=== PATIENT | female | born 1995 | race Caucasian/White ===

== ENCOUNTER → 2019-10-27 | Outpatient (CLI) | payer SELFPAY ==
[2019-10-30 03:07] LABS: Chlamydia By Nucleic Acid AMP Negative (Negative)
[2019-10-30 13:54] LABS: Gonococcus By Nucleic Acid AMP Negative (Negative)
== END | disposition home or self-care (01) ==
LOC: LABSPEC 14:03
PROVIDERS: Visit Provider Obstetrics & Gynecology
DX: Z34.81 Encounter for supervision of other normal pregnancy, first trimester (principal)
CPT/HCPCS: 87491; 87591

== ENCOUNTER → 2019-11-09 09:48 | Outpatient (CLI) | payer SELFPAY ==
[2019-11-09 10:52] LABS: Absolute Lymphocyte Count 2.03 X10^3/uL (0.83-4.51); Absolute Neutrophil Count 4.7 X10^3/uL (2.0-7.7); Basophil# 0.03 X10^3/uL; Basophil% 0.4 % (0-1); Eosinophils% 1.3 % (0-5); Hemoglobin 12.2 g/dL (12.0-15.0); Lymphocyte # 2.03 X10^3/ul (4.0); Lymphocyte % 27.1 % (19-41); Mean Corpuscular Hgb 28.7 pg (27.0-32.0); Mean Corpuscular Volume 87.1 fL (81-99); Mean Platelet Vol. 11.6 fl (6.2-12.0); NRBC Flagged by Analyzer 0 % (0-5); Neutrophil # 4.69 X10^3/uL (2.7-7.7); Neutrophil % 62.8 % (47-70); Platelet Count 230 K/mm3 (150-450); RBC Distribution Width CV 13.6 % (11.6-14.6); RBC Distribution Width SD 42.9 fl (35.1-43.9); Red Blood Count 4.25 M/mm3 (4.2-5.4); White Blood Count 7.5 K/mm3 (4.4-11.0)
[2019-11-09 10:57] LABS: Color, Urine Yellow (Yellow); Glucose, Dipstick Normal (Normal); Ketone-Dipstick 5 mg/dl (Negative); Leukocyte Esterase-Dipstick 25 /ul (Negative); Nitrite-Dipstick Negative (Negative); Occult Blood-Urine 10 /ul (Negative); Protein-Dipstick Negative (Negative); Specific Gravity, Urine 1.025 (1.002-1.030); Urine Bilirubin Dipstick Negative (Negative); Urine Clarity Sl. Cloudy (Clear); Urine Urobilinogen Normal (Normal)
[2019-11-09 11:15] LABS: Thyroid Stim Hormone (TSH) 2.32 uIU/mL (0.358-3.74)
[2019-11-09 11:41] LABS: HIV - WCH Non-Reactive (Nonreactive); Hepatitis B Surface Antigen Non-Reactive (Nonreactive); Hepatitis C Antibody Non-Reactive (Nonreactive); Rubella IgG 10.6 IU/mL
[2019-11-12 06:28] LABS: Prenatal RPR NONREACTIVE (NONREACTIVE)
== END ==
PROVIDERS: Visit Provider Obstetrics & Gynecology
DX: Z34.81 Encounter for supervision of other normal pregnancy, first trimester (principal)
CPT/HCPCS: 81002; 84443; 85025; 86703; 86762; 86803; 87340

== ENCOUNTER → 2020-03-15 16:35 | Outpatient (CLI) | payer SELFPAY ==
[2020-03-15 17:31] LABS: Hematocrit 31.3 % (37-47); Hemoglobin 10.4 g/dL (12.0-15.0); Mean Corp Hgb Conc 33.2 g/dL (32-36); Mean Corpuscular Hgb 29.3 pg (27.0-32.0); Mean Corpuscular Volume 88.2 fL (81-99); Mean Platelet Vol. 10.3 fl (6.2-12.0); Platelet Count 250 K/mm3 (150-450); RBC Distribution Width SD 38.8 fl (35.1-43.9); Red Blood Count 3.55 M/mm3 (4.2-5.4); White Blood Count 6.3 K/mm3 (4.4-11.0)
[2020-03-15 17:37] LABS: Glucose Challenge Gest 1H 50g 120 mg/dL (70-140)
== END ==
PROVIDERS: Visit Provider Student in an Organized Health Care Education/Training Program
DX: Z34.82 Encounter for supervision of other normal pregnancy, second trimester (principal)
CPT/HCPCS: 36415; 82950; 85027

== ENCOUNTER → 2020-05-24 | Outpatient (CLI) | payer SELFPAY | END | disposition home or self-care (01) | LOC: LABSPEC 16:11 | PROVIDERS: Visit Provider Student in an Organized Health Care Education/Training Program | DX: Z36.85 Encounter for antenatal screening for Streptococcus B (principal) | CPT/HCPCS: 87077; 87081; 87186 ==

== ENCOUNTER 2020-06-12 13:25 | Inpatient (IN) | payer SELFPAY ==
[2020-06-12] VITALS (17 sets, daily range): BP systolic 107–129; BP diastolic 51–98; PULSE 65–88; RESP 14–16; TEMP 35.7–36.8; O2SAT 95–100; BMI 30.7
[2020-06-12] MEDS: Lactated Ringers 1,000 ML 999 ML IV (13:15)
[2020-06-12 13:36] LABS: Absolute Lymphocyte Count 1.97 X10^3/uL (0.83-4.51); Absolute Neutrophil Count 8.5 X10^3/uL (2.0-7.7); Basophil# 0.05 X10^3/uL; Basophil% 0.4 % (0-1); Eosinophils% 0.9 % (0-5); Hemoglobin 10.9 g/dL (12.0-15.0); Lymphocyte # 1.97 X10^3/ul (4.0); Mean Corp Hgb Conc 32.1 g/dL (32-36); Mean Corpuscular Hgb 25.8 pg (27.0-32.0); Mean Corpuscular Volume 80.4 fL (81-99); Mean Platelet Vol. 11.2 fl (6.2-12.0); Monocyte# 0.84 X10^3/uL; Monocyte% 7.2 % (0-10); NRBC Flagged by Analyzer 0 % (0-5); Neutrophil # 8.49 X10^3/uL (2.7-7.7); Platelet Count 281 K/mm3 (150-450); RBC Distribution Width CV 14.6 % (11.6-14.6); RBC Distribution Width SD 42.3 fl (35.1-43.9); Red Blood Count 4.23 M/mm3 (4.2-5.4); White Blood Count 11.6 K/mm3 (4.4-11.0)
[2020-06-12] MEDS: Sodium Citrate/Citric Acid 30 ML UDC PO (13:44)
--- NOTE | 2020-06-12 13:44 | PCM.HPOB.BLA ---
History and Physical Date of Admission: 06/12/20 HPI: 24 yo at 39/5w, ESTHER 06/14/20 by LMP, admitted for primary elective section. Patient reported to triage for decreased movement. Upon initial evaluation FHR was 115s/mod tamiko/+accel/no decel. A deceleration into the 60-70s then occured for at least 3 minutes at which point patient was taken back to OR. Upon arrival FHR was in the 140s. Patient monitored in OR for about 30 minutes - FHR 140/mod tamiko/+accel/no decel, toco quiet. Reports some cramping. No LOF, VB. Had emesis x1 this morning. This is complicated by: nothing Obstetrical History G1 Past Medical History denies Medications PNV Past Surgical History Denies Social History Tobacco use: denies Alcohol use: denies Illicit drug use: denies Labs Blood type: O pos Rubella: immune Hep B/C: neg/neg HIV: neg RPR: neg GBS: pos Allergies NKDA Review of Systems General: alert and oriented HEENT: _denies change of vision Heart/lungs: _denies CP, SOB GI: _denies nausea, vomiting, dysuria, diarrhea MSK: _denies calf pain, tenderness Physical Exam Vital Signs Pulse BP Pulse Ox 06/12/20 13:18 82 128/98 H 98 06/12/20 12:53 77 122/72 H General: a&o x3, NAD HEENT: normocephalic, atraumatic Cardio: no JVD Resp: no increased work in breathing Abdomen: soft, gravid, nontender Extremities: _minimal-moderate edema CE: 3 cm per RN FHT: 140/mod tamiko/+accel/no decel [place]: quiet Labs Laboratory Results - last 24 hr 06/12/20 13:15 WBC 11.6 H RBC 4.23 Hgb 10.9 L Hct 34.0 L MCV 80.4 L MCH 25.8 L MCHC 32.1 RDW Std Deviation 42.3 RDW Coeff of Tamiko 14.6 Plt Count 281 MPV 11.2 Immature Gran % (Auto) 1.500 H Neut % (Auto) 73.0 H Lymph % (Auto) 17.0 L [place] % (Auto) 7.2 Eos % (Auto) 0.9 Baso % (Auto) 0.4 Absolute Neuts (auto) 8.5 H Absolute Lymphs (auto) 1.97 Nucleated RBC % 0 Assessment & Plan 24 yo at 39/5w, ESTHER 06/14/20 by LMP, admitted for primary elective section. Uncomplicated Admit to L&D - heart rate deceleration with recovery. status at this time reassuring, category 1. Discussed options of trial of labor with Pitocin induction versus primary section. At this time status is stable and reassuring, patient is dilated to 3 cm. Reasonable to attempt induction of labor. If patient were to choose this route would recommend her getting her epidural now in an attempt to prevent general anesthesia if needed. Discussed alternate routes with primary section. All risks, benefits, alternatives discussed with the patient. Risks include but are not limited to: Risk of bleeding to the point of transfusion, infection, injury to surrounding tissue including bowel or bladder requiring prolonged Jefferson catheter use, VTE, ICU admission. Patient and aware and all questions answered. Patient aware that if she were to have section in this this does not necessitate repeat section unless desired. Discussed that at this time she and baby are stable, labor attempt is a viable option for her. She was made aware that during labor there is a chance of intolerance with section at that time. However this may not occur depending on labor course. Patient and her had a discussion after our discussion about her options for delivery. She decided at that time for primary section. This will be done now in a nonemergent fashion. Patient able to receive spinal. 2 g Ancef and 500 mg azithromycin preop to be given. - GBS pos - Anesthesia in OR with patient during discussions.
[2020-06-12] MEDS: Ondansetron 4 MG/2 ML Vial IV ×2 (13:57→18:31)
[2020-06-12] MEDS: Cefazolin 2 GM in 0.9% Normal Saline 100 ML IV (14:12)
--- NOTE | 2020-06-12 14:51 | PCM.OPRPT ---
Delivery Classification: ANDRY Final ESTHER: 06/14/20 Final ESTHER Source: LMP Gestational age: 39 Weeks and 5 Days Type of Anesthesia:: Spinal Date of Procedure: 06/12/20 Pre-Operative Diagnosis: Dwyer intrauterine , elective section Post-Operative Diagnosis: Dwyer intrauterine , elective section Indications: 24-year-old G1 at 39/5 weeks who presented with decreased movement. Patient had heart rate deceleration with spontaneous recovery. Patient was monitored for 30 minutes in OR. Discussed trial of labor versus section. Patient and her elected for primary section. Risk benefits alternatives were discussed with patient. Risks include but are not limited to: Risk of bleeding to the point transfusion, infection, injury to surrounding tissue including bowel or bladder requiring prolonged Jefferson catheter use, VTE, ICU admission. Patient aware and consented. Description of Procedure: Patient was present in the operating room. Spinal anesthesia placed. Patient placed in the supine position with a left lateral tilt. Prepped and draped in usual sterile fashion. Pfannenstiel skin incision made with scalpel carried down through subcutaneous tissue. Fascia nicked on either side of the midline and extended bilaterally using Bell scissors. Sigifredo clamps grasped. Fascial edge which was tented up underlying rectus muscles were dissected off bluntly. Sigifredo clamps moved to inferior fascial edge which was tented up and the underlying rectus muscles were dissected off bluntly and sharply at midline. Hemostats utilized to separate rectus muscle superiorly. Hemostats were grasped peritoneum and incised, peritoneal entry extended. Bladder blade placed. Vesicouterine peritoneum identified and bladder flap created. Low transverse uterine incision made with scalpel and extended bluntly. Amniotic fluid cleared. Hand placed in the uterus with the assistance of gentle fundal pressure head delivered followed by body. Cord clamped and cut. Baby to nursing. Spontaneous delivery of placenta. Uterus exteriorized and cleared of all clots. Hysterotomy closed with a running locking stitch. Followed by a second vertical imbricating stitch. Uterus replaced in the abdomen, hysterotomy closure hemostatic. Peritoneum closed with a running stitch. Fascia closed in a running fashion. Subcutaneous tissue closed with suture. Skin closed with a running subcuticular stitch. At the end of the procedure all needle, lap, sponge counts were correct x3. Urine output: 500 cc Cord Entanglement: None Gender: Male (1 minute): 9 (5 minute): 9 Antibiotic Given: Ancef 2 grams IV x1, Zithromax 500 mg/5 mL X1 - Admit VTE Documentation VTE Mechan Device Prophylaxis: SCD's
--- NOTE | 2020-06-12 14:56 | DCINST_ITS ---
Discharge Activity: Return to Normal Activity, May not drive while taking narcotic pain medications., May Shower May resume sexual activity in: 4-6 weeks Weight Bearing Status: Weight bearing as tolerated Call your doctor if your incision/area has: Continuous Slow Oozing, Sudden Increased Bleeding, Increased Pain/ Swelling, Increased Redness Call your doctor if you observe: Fever of 101 or Higher, Inability to urinate, Inability to have a bowel movement, Using more than one pad per hour, Shortness of breath, Dizziness, Increased palpitations (irregular heartbeat), Calf discomfort, Uncontrolled pain Cleanse incision/area with: Soap & Water Additional Instructions: If you experience any of the following, contact your healthcare provider. * Bleeding that soaks a pad every hour for 2 hours * Fever 100.4 or higher * Unrelieved incision or abdominal pain * Swelling, redness, discharge or bleeding from your incision or episiotomy site * Your incision begins to separate * Problems urinating (including inability to urinate or burning while urinating). * Visual changes * Severe headache * Flu-like symptoms * Pain or redness in one of both of your breasts * Pain, warmth, tenderness or swelling in your legs, especially the calf area * Frequent nausea and vomiting * Symptoms of depression or anxiety If you experience any of the following, call 911 or go to the nearest Emergency Room. * Chest pain * Problems breathing * Seizure activity * Partial or complete paralysis of a body part, slurred speech, weakness or drooping of the face, or a sudden inability to walk or hold your balance Allergies/Adverse Reactions: Allergies No Known Allergies Allergy (Verified 06/12/20 13:37) Medications to take at Discharge Famotidine [Pepcid AC] 20 mg PO DAILY 06/12/20 Vit No.130/Iron/Folic [ Tablet] 1 each PO DAILY 06/12/20 Follow-Up: Call to make an appointment with your doctor for an incision check in 1-2 weeks. You will also need a 6 week post- follow up appointment. Test results from this visit will be discussed in further detail at your follow- up appointment, if applicable. Please Follow Up With: Flaquita Gibbs DO When: 2 weeks post op, 6 week Primary Care Physician: Care Physician,No Primary [Primary Care Provider] -
[2020-06-12] MEDS: Ketorolac 30 MG/ML Syringe IV ×2 (15:39→21:52)
[2020-06-12] MEDS: Acetaminophen 500 MG Tablet 1000 MG PO ×2 (16:28→21:55)
[2020-06-12] MEDS: Oxytocin 30 units/NS 500 ml 30 UNITS/500 ML IV.SOLN 167 UNITS IV (17:29)
[2020-06-12] MEDS: Lactated Ringers 1,000 ML 100 ML IV (20:34)
--- NOTE | 2020-06-12 22:00 | NURSING ---
Offered to help get pt out of bed at this time, but pt refused and want to wait a little bit. This nurse explained to pt the importance of getting up after surgery and pt agreed to get up shortly.
[2020-06-13 01:45] VITALS: PULSE 78; RESP 16; O2SAT 97
[2020-06-13] MEDS: Ketorolac 30 MG/ML Syringe IV ×2 (04:18→10:13)
[2020-06-13] MEDS: Acetaminophen 500 MG Tablet 1000 MG PO ×3 (04:18→16:33)
[2020-06-13 04:19] VITALS: BP 114/69; PULSE 68; RESP 16; TEMP 36.6; O2SAT 97
[2020-06-13 04:38] LABS: Hematocrit 29.5 % (37-47); Hemoglobin 9.5 g/dL (12.0-15.0); Mean Corp Hgb Conc 32.2 g/dL (32-36); Mean Corpuscular Hgb 26.2 pg (27.0-32.0); Mean Corpuscular Volume 81.3 fL (81-99); Mean Platelet Vol. 11.5 fl (6.2-12.0); Platelet Count 257 K/mm3 (150-450); RBC Distribution Width CV 14.6 % (11.6-14.6); Red Blood Count 3.63 M/mm3 (4.2-5.4)
--- NOTE | 2020-06-13 07:05 | PN.OBGYN_ITS ---
Subjective: Postop day 1. Feeling well. Pain controlled. Breast-feeding. Lochia minimal. - Physical Exam Vitals/I&O's: Vital Signs Temp Pulse Resp BP Pulse Ox 97.9 F 68 16 114/69 97 06/13/20 04:19 06/13/20 04:19 06/13/20 04:19 06/13/20 04:19 06/13/20 04:19 Oxygen Delivery Method Room Air Weight: 83.915 kg Body Mass Index (BMI) 30.7 Intake and Output for Last 24 Hours 06/11/20 06/12/20 06/13/20 23:59 23:59 23:59 Intake Total 2115 / 2115 518.33 / 518.33 Output Total 1550 / 1550 600 / 600 Balance 565 / 565 -81.67 / -81.67 General: Alert, Oriented x3, No apparent distress HEENT: Atraumatic, Normocephalic Neck: Supple Lungs: Normal air movement Cardiovascular: Regular rate Abdomen: Soft - Dressing clean and dry. Uterus 2 cm below umbilicus. Extremities: No edema Neurological: Cranial nerves II-XII grossly intact Psych/Mental Status: Normal Affect, Appropriate Laboratory Results 06/12/20 13:15: WBC 11.6 H, RBC 4.23, Hgb 10.9 L, Hct 34.0 L, MCV 80.4 L, MCH 25.8 L, MCHC 32.1, RDW Std Deviation 42.3, RDW Coeff of Tamiko 14.6, Plt Count 281, MPV 11.2, Immature Gran % (Auto) 1.500 H, Neut % (Auto) 73.0 H, Lymph % (Auto) 17.0 L, [place] % (Auto) 7.2, Eos % (Auto) 0.9, Baso % (Auto) 0.4, Absolute Neuts (auto) 8.5 H, Absolute Lymphs (auto) 1.97, Nucleated RBC % 0 06/12/20 13:15: Blood Type O POSITIVE, Antibody Screen NEGATIVE 06/13/20 04:30: WBC 15.0 H, RBC 3.63 L, Hgb 9.5 L, Hct 29.5 L, MCV 81.3, MCH 26.2 L, MCHC 32.2, RDW Std Deviation 42.0, RDW Coeff of Tamiko 14.6, Plt Count 257, MPV 11.5 Current Medications Acetaminophen (Acetaminophen 500 Mg Tablet) 1,000 mg PO Q6H [facility] Last Admin: 06/13/20 04:18 Dose: 1,000 mg Documented by: Bisacodyl (Bisacodyl 10 Mg Suppository) 10 mg RC UD PRN PRN Reason: If no BM Diphenhydramine HCl (Diphenhydramine 25 Mg Capsule) 25 mg PO Q6H PRN PRN PRN Reason: ITCHING Stop: 06/13/20 15:20 Enoxaparin Sodium (Enoxaparin 40 Mg/0.4 Ml Syringe) 40 mg SC DAILY [facility] Hydrocortisone (Hydrocortisone 2.5% Crm) 1 applic TOPICAL TID PRN PRN; Protocol PRN Reason: Discomfort Lactated Ringer's () 1,000 mls @ 100 mls/hr IV .Q10H [facility] Last Infusion: 06/13/20 01:45 Dose: 0 mls/hr Documented by: Ibuprofen (Ibuprofen 600 Mg Tablet) 600 mg PO Q6H [facility] Ketorolac Tromethamine (Ketorolac 30 Mg/Ml Syringe) 30 mg IV Q6H [facility] Stop: 06/13/20 09:31 Last Admin: 06/13/20 04:18 Dose: 30 mg Documented by: Nalbuphine HCl (Nalbuphine 10 Mg/Ml Ampul) 5 mg IV Q3H PRN PRN PRN Reason: ITCHING Stop: 06/13/20 15:20 Naloxone HCl (Naloxone 0.4 Mg/Ml Syringe) 0.02 mg IV Q1M PRN PRN Reason: RR <10 and pt unresponsive Ondansetron HCl (Ondansetron 4 Mg/2 Ml Vial) 4 mg IV Q4H PRN PRN PRN Reason: Nausea Last Admin: 06/12/20 18:31 Dose: 4 mg Documented by: Oxycodone HCl (Oxycodone 5 Mg Tablet) 5 - 10 mg PO Q4H PRN PRN PRN Reason: Pain Score 4-10 Prochlorperazine Edisylate (Prochlorperazine 10 Mg/2 Ml Vial) 10 mg IV Q6H PRN PRN PRN Reason: NAUSEA Senna/Docusate Sodium (Senna/Docusate Sodium 1 Tablet) 0 tablet PO DAILY [place] Simethicone (Simethicone 80 Mg Tablet) 80 mg PO PCHS PRN PRN Reason: Indigestion/stomach pain Sodium Chloride (0.9% Saline Lock 10 Ml Syringe) 5 - 15 ml IV UD PRN PRN Reason: SALINE FLUSH Zolpidem Tartrate (Zolpidem Tartrate 5 Mg Tablet) 5 mg ORAL QHS PRN PRN PRN Reason: Insomnia Medical Necessity - Tobacco Use Smoking Status: Never smoker Assessment/Plan 24-year-old postop day 1 status post primary section. Acute on chronic anemia secondary to surgery, iron supplement at home. Breast-feeding. Desires home-going today.
[2020-06-13 08:30] VITALS: BP 122/70; PULSE 76; RESP 16; TEMP 36.8
[2020-06-13] MEDS: Senna/Docusate Sodium 1 Tablet PO (10:12)
[2020-06-13] MEDS: Enoxaparin 40 MG/0.4 ML Syringe SC (10:12)
[2020-06-13 12:20] VITALS: BP 114/63; PULSE 83; RESP 16; TEMP 36.4
[2020-06-13] MEDS: Ibuprofen 600 MG Tablet PO (16:32)
[2020-06-13 17:00] VITALS: BP 118/66; PULSE 80; RESP 16; TEMP 36.6
== END 2020-06-13 18:25 | disposition home or self-care (01) | DRG 788 ==
LOC: WPOUT 13:27 → WP 13:27
PROVIDERS: Admitting Provider Student in an Organized Health Care Education/Training Program; Visit Provider Student in an Organized Health Care Education/Training Program
DX: O36.8130 Decreased fetal movements, third trimester, not applicable or unspecified (principal); O99.824 Streptococcus B carrier state complicating childbirth; O76 Abnormality in fetal heart rate and rhythm complicating labor and delivery; Z3A.39 39 weeks gestation of pregnancy; Z37.0 Single live birth
CPT/HCPCS: 59025; 59050; 85025; 85027; 86850; 86900; 86901; 99218; 99251; J7120; G0378; G0463; J2405

== ENCOUNTER → 2020-06-21 15:35 | Outpatient (CLI) | payer SELFPAY ==
[2020-06-12 12:47] VITALS: BMI 30.7
[2020-06-21 16:11] LABS: Hematocrit 34.9 % (37-47); Hemoglobin 10.8 g/dL (12.0-15.0); Mean Corp Hgb Conc 30.9 g/dL (32-36); Mean Corpuscular Hgb 25.2 pg (27.0-32.0); Mean Corpuscular Volume 81.4 fL (81-99); Mean Platelet Vol. 10.4 fl (6.2-12.0); Platelet Count 426 K/mm3 (150-450); RBC Distribution Width CV 14.6 % (11.6-14.6); RBC Distribution Width SD 42.6 fl (35.1-43.9); Red Blood Count 4.29 M/mm3 (4.2-5.4); White Blood Count 8.7 K/mm3 (4.4-11.0)
[2020-06-21 16:38] LABS: Protein, Urine (Random) 7.7 mg/dL (<11.9); Protein:Creat Ratio 161 mg/g CRE (0-200)
[2020-06-21 16:52] LABS: ALB/GLOB Ratio 0.7 RATIO (0.9-2.4); AST(SGOT) 19 U/L (15-37); Alanine Aminotransfer ALT/SGPT 27 U/L (13-56); Alkaline Phosphatase 164 U/L (45-117); Anion Gap 7 (5-15); BUN 9 mg/dL (7-18); BUN/Creat Ratio 11.1 RATIO (10-20); Calcium,Total 8.8 mg/dL (8.5-10.1); Chloride 106 mmol/L (98-107); Creatinine, Serum 0.81 mg/dL (0.55-1.02); EST Glomerular Filtration Rate 92 mL/min (>60); Est Glom Filt Rate - Afr Amer 112 mL/min (>60); Globulin 4.2 g/dL (2.2-4.2); Glucose 81 mg/dL (74-106); LDH 277 U/L (84-246); Potassium 2.7 mmol/L (3.5-5.1); Protein, Total 7.2 g/dL (6.4-8.2); Sodium Level 140 mmol/L (136-145)
== END ==
PROVIDERS: Visit Provider Student in an Organized Health Care Education/Training Program
DX: R30.0 Dysuria (principal)
CPT/HCPCS: 36415; 80053; 82570; 83615; 84156; 85027; 87086; 87088

== ENCOUNTER → 2020-06-24 11:35 | Outpatient (CLI) | payer SELFPAY ==
[2020-06-12 12:47] VITALS: BMI 30.7
[2020-06-24 15:03] LABS: Potassium 3.3 mmol/L (3.5-5.1)
== END ==
PROVIDERS: Visit Provider Student in an Organized Health Care Education/Training Program
DX: E87.6 Hypokalemia (principal)
CPT/HCPCS: 36415; 84132

== ENCOUNTER → 2020-07-18 | Outpatient (CLI) | payer SELFPAY ==
[2020-06-12 12:47] VITALS: BMI 30.7
[2020-07-21 18:38] LABS: HPV Reflexed? NOT INDICATED
== END | disposition home or self-care (01) ==
LOC: LABSPEC 07-19 08:09
PROVIDERS: Visit Provider Student in an Organized Health Care Education/Training Program
DX: Z12.4 Encounter for screening for malignant neoplasm of cervix (principal)
CPT/HCPCS: 88175; G0145

== ENCOUNTER 2024-04-18 15:55 | Emergency (ER) | payer MEDICAID, SELFPAY ==
[2024-04-18 15:56] VITALS: BP 132/81; PULSE 83; RESP 16; TEMP 36.6; O2SAT 99
--- NOTE | 2024-04-18 16:58 | ED.RN ---
PT IS 8 DAYS PP AND WAS MOVING A BABY TOY ON THE FLOOR WITH HER FOOT, BAD PAIN THAT CAUSED PT TO FALL. PTS SAID PT GOT VERY FLUSHED AND SWEATING. SQUAD BROUGHT PT IN AND DRIVING THE SQUAD HIT A BUMP THAT HELPED. NOTHING SEEMS TO MAKE IT BETTER OR WORSE. NO BLADDER ISSUES.
--- NOTE | 2024-04-18 17:03 | ED.VIS.BACK ---
HPI History of Present Illness Chief Complaint: Back Detail of Chief Complaint: Acute central low back pain Informant: patient and spouse/S.O. Onset/Context/Timing Onset: Today and Hours Context: Sudden Onset Chronic pain exacerbated by: Patient had near fall 194 5 minutes prior to the pain. Injury: fall Timing: Intermittent Quality: Sharp and Aching Location: Lumbar Current Severity: Gone Maximum Severity: Severe Worsened by: improves with Nothing Relieved by: Nothing Associated Symptoms Associated Symptoms: Negative for Numbness, Tingling, Radiation to Right Leg, Radiation to Left Leg, Fever, Abdominal Pain, Dysuria, Unable to Ambulate, Unable to Transfer, Urinary Retention, Urinary Incontinence or Constipation Narrative Narrative: Patient is a 28-year-old female who is status post day 8 who apparently had a near fall. 45 minutes later she had severe central low back pain. She had no neurologic symptoms. She had no radicular pain. She presently has no discomfort. She took oxycodone. She states it did not help. She apparently was transported by ambulance. She reports ambulance hit a bump and her pain went away. Prior similar symptoms: No Recent Illness/Hospitalization: Yes [facility] Medical History delivery delivered Home Medications ?Medication ?Instructions ?Recorded ?Last Taken ?Type famotidine 20 mg tablet 20 mg PO DAILY Check with primary 06/12/20 06/11/20 21:00 History doctor vits no.130-ferrous fum 1 each PO DAILY Check with primary 06/12/20 06/11/20 21:00 History 27 mg iron-folic acid 800 mcg doctor tablet Allergy/AdvReac Type Severity Reaction Status Date / Time No Known Allergies Allergy Verified 04/18/24 15:58 Social History (Updated 04/18/24 @ 17:[address] Calvin Murphy MD) household members: spouse and children Smoking Status: Never smoker ROS ROS ED Constitutional Constitutional ED: Denies chills, fever(s), subjective or sweats Gastrointestinal Gastrointestinal: Denies abdominal pain, diarrhea, melena, nausea or vomiting Genitourinary Genitourinary ED: Denies dysuria, hematuria or urinary frequency Musculoskeletal Musculoskeletal: Reports back pain and other Details: Patient did have a spinal prior to . ; Denies arthralgias, myalgias or neck pain Integumentary Denies rash Hematologic/Lymphatic Hematologic/Lymphatic: Denies easy bleeding or easy bruising EXAM Physical Exam Const Vital Signs: 04/18/24 15:56 Temperature 97.8 F Temperature Source Temporal Pulse Rate 83 Respiratory Rate 16 Blood Pressure 132/81 H Blood Pressure Mean 98 Pulse Ox 99 Oxygen Delivery Method Room Air Positive well nourished and well developed General Appearance ED: well developed and NAD HEENT Reports moist mucous membranes HEENT Narrative: Head is atraumatic normocephalic. Ears normal. Eyes PERRL and EOMs intact bilaterally General Eye ED: Negative for scleral icterus Resp normal respiratory effort Cardio regular rate and regular rhythm GI normal to inspection, nondistended, normoactive bowel sounds, soft to palpation and non-tender Back/Spine Back/Spine Narrative: Slight discomfort to palpation right paralumbar region. Having patient twist to the right or left causes no discomfort presently. Having patient been to the light of breath does not cause discomfort. Gait observed and normal. Able to walk on heels and toes. Extremity normal to inspection and no clubbing, cyanosis or edema General Extremety ED: Negative for edema or tenderness General Extremity: Negative for edema Neuro oriented x3 and no sensory deficits noted Sensorium / Orientation: alert Deep Tendon Reflexes: Rt Patellar (L4): 2+, Lt Patellar (L4): 2+, Rt Ankle (S1): 2+ and Lt Ankle (S1): 2+ Deep Tendon Reflexes Back: Rt Patellar (L4): 2+, Lt Patellar (L4): 2+, Rt Ankle (S1): 2+ and Lt Ankle (S1): 2+ Psych mental status grossly normal Skin no rashes or lesions noted and no wounds MDM MDM MDM Narrative Medical decision making narrative: Patient is presently pain-free. History and exam is consistent with muscular pain. My opinion imaging i.e. x-ray or advanced imaging is not indicated. was concerned this was related to the spinal. He was informed this is not a. Suspect she strained a muscle in her lower back. Recommendation is ice and aunt contraindication. There is no record of delivery at [facility]. She has not been seen since June 2020 for supervision of by Flaquita Gibbs. History & Record Review Additional record(s) reviewed:: Prior outpatient record Discharge Plan Triage Chief Complaint: Back ED Provider: Calvin Murphy Dx/Rx/DC Orders Clinical Impression: Acute lumbar myofascial strain, Status post Instructions: ED Back Sprain/Strain Prescriptions: No Action famotidine 20 MG tablet 20 mg PO DAILY vit no.[id number] 1 EACH tablet 1 each PO DAILY Primary Care Provider: Care Physician,No Primary Referrals: Care Physician,No Primary [Primary Care Provider] - Doctor,Your [Non-Staff] - 1 Week if not improving Activity Restrictions/Additional Instructions: 1. Apply ice 6 times a day to lower back. 2. Take either 3 ibuprofen tablets every 6-8 hours or 2 Aleve tablets every 12 hours for next 3 days. Print Language: Kinyarwanda Disposition Disposition: Home, Self Care
== END 2024-04-18 17:25 | disposition home or self-care (01) ==
LOC: ED 17:18
PROVIDERS: Emergency Provider Emergency Medicine; Visit Provider Emergency Medicine
DX: O9A.23 Injury, poisoning and certain other consequences of external causes complicating the puerperium (principal); S39.012A Strain of muscle, fascia and tendon of lower back, initial encounter; W19.XXXA Unspecified fall, initial encounter; G89.29 Other chronic pain
CPT/HCPCS: 99284

== ENCOUNTER 2024-05-10 21:07 | Emergency (ER) | payer MEDICAID, SELFPAY ==
[2024-05-10 21:08] VITALS: BP 141/105; PULSE 81; RESP 18; TEMP 36.4; O2SAT 97; BMI 33.1
--- NOTE | 2024-05-10 21:12 | ED.VIS.GI ---
HPI HPI - GI History of Present Illness Chief Complaint: Abd Pain Abdominal Pain/Flank Pain Onset: Today and Hours (1) Context: Sudden Onset Timing: Continuous Quality: Aching Location: Diffuse Worsened by: Nothing Relieved by: Nothing Nausea/Vomiting/Emesis GI Symptom: Positive for Nausea; Negative for Vomiting Diarrhea/Melena/Hematochezia GI Symptom: Negative for Diarrhea, Melena or Hematochezia Associated Symptoms Associated Symptoms: Negative for Dysuria, Frequency or Hematuria Narrative Narrative: Patient presents with abdominal pain that began approximately 1 hour prior to arrival. Patient states her pain is aching and dull. Patient states it is diffuse across her abdomen. Patient states it began rather suddenly. Patient states nothing makes her pain better and nothing makes it worse. Patient admits to some nausea but denies any vomiting. Patient denies any diarrhea, melena, or hematochezia. Patient denies any dysuria, frequency, or hematuria. Patient states her pain radiates into her back. Patient states she had a section 1 month ago and has not had a menstrual period since that time. [facility] Medical History (Updated 05/10/24 @ 23:[address] Og Enriquez DO) delivery delivered Home Medications ?Medication ?Instructions ?Recorded ?Last Taken ?Type famotidine 20 mg tablet 20 mg PO DAILY Check with primary 06/12/20 06/11/20 21:00 History doctor vits no.130-ferrous fum 1 each PO DAILY Check with primary 06/12/20 06/11/20 21:00 History 27 mg iron-folic acid 800 mcg doctor tablet hydrocodone-acetaminophen 5-325mg 1 tab PO Q6H PRN PRN Pain 3 days 05/10/24 Unknown Rx 5mg-325mg #10 TABLETS Allergy/AdvReac Type Severity Reaction Status Date / Time No Known Allergies Allergy Verified 05/10/24 21:08 Surgical History (Updated 05/10/24 @ 23:[address] Og Enriquez DO) History of section Social History household members: spouse and children Smoking Status: Never smoker ROS ROS ED Constitutional Constitutional ED: Denies chills or fever(s) Eyes Eyes: Denies blurry vision or change in vision ENT ENT ED: Denies rhinorrhea or sore throat Cardiovascular Cardiovascular: Denies chest pain or palpitations Respiratory/Chest Respiratory/Chest: Denies cough or dyspnea Gastrointestinal Gastrointestinal: Reports abdominal pain and nausea; Denies vomiting Genitourinary Genitourinary ED: Denies dysuria or hematuria Musculoskeletal Musculoskeletal: Reports back pain; Denies neck pain Integumentary Denies abscess or rash Neurologic Neurologic: Denies headache(s) or weakness Allergic/Immunologic Allergic/Immunologic ED: Denies mouth swelling or urticaria EXAM Physical Exam Const Vital Signs: 05/10/24 21:08 05/10/24 21:08 Temperature 97.6 F L Temperature Source Oral Pulse Rate 81 Respiratory Rate 18 Blood Pressure 141/105 H 141/105 H Blood Pressure Mean 117 117 Pulse Ox 97 Positive well nourished and well developed Constitutional Narrative: BMI is 33.2 General Appearance ED: well developed and NAD HEENT Reports moist mucous membranes Neck supple and no JVD Resp normal respiratory effort and clear to auscultation bilaterally Cardio regular rate and regular rhythm GI non-distended Palpation: soft and tender epigastric, LLQ, RLQ, LUQ, RUQ, periumbilical and suprapubic; Negative for guarding or rebound tenderness present Neuro CN's II-XII intact bilaterally, moves all extremities and no sensory deficits noted Sensorium / Orientation: alert Motor Exam: strength 5/5 throughout Psych mental status grossly normal MDM MDM MDM Narrative Medical decision making narrative: Differential diagnosis includes intra-abdominal abscess, wound infection, bowel obstruction, perforation, electrolyte abnormality, pancreatitis, urinary tract infection, and ureteral calculus. CT scan of the abdomen and pelvis will be obtained to assess for bowel obstruction, perforation, wound infection, intra-abdominal abscess, and ureteral calculus. CBC will be obtained to assess for leukocytosis and anemia. Comprehensive metabolic profile will be obtained to assess for hepatic function, renal function, and electrolyte abnormality. Serum lipase will be obtained to assess for pancreatitis. Serum lactate will be obtained to assess for sepsis. Serum hCG will be obtained to assess for . Urinalysis will be obtained to assess for urinary tract infection and hematuria. Lab Data Attestation: I reviewed the patient's lab results. Lab results narrative: CBC was reviewed. There is a slight leukocytosis of 12.6. The remainder is within normal limits. Comprehensive metabolic profile was reviewed and was essentially within normal limits. Serum lactate was reviewed and was normal at 1.9. Lipase was reviewed and was normal at 24. Serum hCG was reviewed and was negative. Urinalysis was reviewed. There is no evidence of urinary tract infection or hematuria. Labs: Laboratory Results - last 24 hr 05/10/24 05/10/24 05/10/24 21:11 21:31 22:40 WBC 12.6 H RBC 4.92 Hgb 12.7 Hct 39.9 MCV 81.1 MCH 25.8 L MCHC 31.8 L RDW Std Deviation 42.3 RDW Coeff of [place] 14.3 Plt Count 368 MPV 10.8 Immature Gran % (Auto) 0.700 Neut % (Auto) 46.8 L Lymph % (Auto) 40.8 [place] % (Auto) 6.4 Eos % (Auto) 4.8 Baso % (Auto) 0.5 Absolute Neuts (auto) 5.9 Absolute Lymphs (auto) 5.12 H Nucleated RBC % 0 Differential Comment SEE COMMENT Atypical Lymphocytes RARE Platelet Estimate ADEQUATE RBC Morphology N CHROM Anisocytosis RARE Microcytosis RARE Sodium 137 Potassium 3.9 Chloride Direct 101 Carbon Dioxide 22.0 Anion Gap 15 BUN 14 Creatinine 0.72 Estim Creat Clear Calc 135.00 Est GFR (MDRD) Non-Af 117 BUN/Creatinine Ratio 19.8 Glucose 106 H Lactic Acid 1.9 Calcium 9.5 Total Bilirubin 0.48 AST 36 H ALT 23 Alkaline Phosphatase 161 H Total Protein 7.9 Albumin 4.4 Globulin 3.6 Albumin/Globulin Ratio 1.2 Lipase 24 Serum , Qual NEGATIVE Urine Color Yellow Urine Clarity Clear Urine pH 6.0 Ur Specific [place] 1.015 Urine Protein 15 H Urine Glucose (UA) Normal Urine Ketones Negative Urine Occult Blood Negative Urine Nitrite Negative Urine Bilirubin Negative Urine Urobilinogen Normal Ur Leukocyte Esterase 25 H Urine RBC 0 SEEN Urine WBC 0-5 SEEN Ur Squamous Epith Cells 0-5 SEEN Urine Bacteria 0 SEEN Urine Mucus 0 SEEN Radiography Diagnostic Testing: Clinical Impression(s) from Imaging Studies Abdomen/Pelvis CT 05/10/24 21:27 IMPRESSION: 1. No acute or significant CT abnormality in the abdomen and pelvis. 2. Hepatic steatosis and hepatomegaly One or more dose reduction techniques were used (e.g., Automated exposure control, adjustment of the mA and/or kV according to patient size, use of iterative reconstruction technique). Reading Location: [facility] CT scan of the abdomen and pelvis was obtained. There is no acute abnormality noted. There is no free air or free fluid. There is hepatic steatosis and hepatomegaly. There is no evidence of cholecystitis or cholelithiasis. This was interpreted by the radiologist and was also dependently reviewed by myself. Treatment and Re-Evaluation :: Patient was given IV fluids, morphine, and Zofran. Patient was feeling better on reevaluation. Patient was advised of her findings. Patient was instructed to drink plenty of fluids. Patient was requesting different pain medication than her oxycodone. Patient was given a prescription for a short course of [place]. Patient was instructed to follow-up with her primary care physician and [facility] in 3 to 5 days. Patient was instructed to return if worse in any way. Patient and understood and were agreeable with the plan. All questions were answered. Discharge Plan Triage Chief Complaint: Abd Pain ED Provider: Og Enriquez Dx/Rx/DC Orders Clinical Impression: Abdominal pain, Status post section Instructions: ED Abdominal Pain Unkn Cause Fem Prescriptions: New hydrocodone-acetaminophen 5-325 mg tablet 1 tab PO Q6H PRN PRN (Reason: Pain) 3 Days Qty: 10 0RF No Action famotidine 20 MG tablet 20 mg PO DAILY vit no.[id number] 1 EACH tablet 1 each PO DAILY Primary Care Provider: Rl Vega Referrals: Rl Vega PA-C [Primary Care Provider] - 3-5 Days Care Physician,No Primary [Non-Staff] - Print Language: Azerbaijani Disposition Disposition: Home, Self Care
--- NOTE | 2024-05-10 21:27 | CT_ITS ---
PROCEDURE: ABDOMEN/PELVIS W IV CONT ONLY REASON FOR EXAM: Abdominal pain TECHNIQUE: Abdomen and pelvis CT with intravenous contrast. COMPARISON: None. FINDINGS: Lung bases: Clear Liver: Diffuse fatty infiltration. Liver is enlarged. Gallbladder: Unremarkable. Spleen: Normal size. Pancreas: Unremarkable. Adrenals: Unremarkable. Kidneys: Normal renal sizes. No hydronephrosis. Bladder: Unremarkable. Reproductive Organs: Normal uterine size and contour. Ovaries are unremarkable. Bowel: Unremarkable. Appendix: Normal. Lymph nodes: No suspicious lymph node enlargement. Vasculature: Major vascular structures are unremarkable. Peritoneum / Retroperitoneum: No ascites. No free air. Bones: Unremarkable. CT/Abdomen/Pelvis W IV Cont ONLY IMPRESSION: 1. No acute or significant CT abnormality in the abdomen and pelvis. 2. Hepatic steatosis and hepatomegaly One or more dose reduction techniques were used (e.g., Automated exposure contr ol, adjustment of the mA and/or kV according to patient size, use of iterative reconstruction technique). Reading Location: [facility]
[2024-05-10] MEDS: 0.9% Normal Saline (1000mL) 1,000 ML 999 ML IV (21:33)
[2024-05-10] MEDS: Ondansetron 4 MG/2 ML Vial IV (21:33)
[2024-05-10 21:35] LABS: Absolute Lymphocyte Count 5.12 X10^3/uL (0.83-4.51); Absolute Neutrophil Count 5.9 X10^3/uL (2.0-7.7); Basophil# 0.06 X10^3/uL; Basophil% 0.5 % (0-1); Eosinophils% 4.8 % (0-5); Hematocrit 39.9 % (37-47); Hemoglobin 12.7 g/dL (12.0-15.0); Lymphocyte # 5.12 X10^3/ul (0.83-4.51); Lymphocyte % 40.8 % (19-41); Mean Corp Hgb Conc 31.8 g/dL (32-36); Mean Corpuscular Hgb 25.8 pg (27.0-32.0); Mean Corpuscular Volume 81.1 fL (81-99); Mean Platelet Vol. 10.8 fl (6.2-12.0); Monocyte% 6.4 % (0-10); NRBC Flagged by Analyzer 0 % (0-5); Neutrophil # 5.88 X10^3/uL (2.7-7.7); Neutrophil % 46.8 % (47-70); POSITIVE DIFFERENTIAL YES; Platelet Count 368 K/mm3 (150-450); RBC Distribution Width CV 14.3 % (11.6-14.6); RBC Distribution Width SD 42.3 fl (35.1-43.9); Red Blood Count 4.92 M/mm3 (4.2-5.4); White Blood Count 12.6 K/mm3 (4.4-11.0)
[2024-05-10 21:36] LABS: Differential Indicated SCAN CRITERIA MET
[2024-05-10] MEDS: Morphine 4 MG/ML Syringe IV (21:37)
[2024-05-10 21:46] LABS: Internal QC Validated? YES +Cl - CLEAR BKGD; Pregnancy, Serum, hCG Quali. NEGATIVE Negative
[2024-05-10 22:00] LABS: Anisocytosis RARE; Atypical Lymphocyte RARE %; Microcytosis RARE; Platelet Estimate ADEQUATE (ADEQ); Red Cell Morphology N CHROM NORMAL (NORM C&C)
[2024-05-10 22:05] LABS: Lipase 24 U/L (13-75)
[2024-05-10 22:06] LABS: Lactic Acid 1.9 mmol/L (0.0-2.0)
[2024-05-10 22:11] LABS: ALB/GLOB Ratio 1.2 RATIO (0.9-2.4); AST(SGOT) 36 U/L (<=31); Alanine Aminotransfer ALT/SGPT 23 U/L (<=34); Albumin, Serum 4.4 g/dL (3.5-5.0); Alkaline Phosphatase 161 U/L (35-104); Anion Gap 15 (5-15); BUN 14 mg/dL (4-19); BUN/Creat Ratio 19.8 RATIO (10-20); Calcium 9.5 mg/dL (7.6-11.0); Chloride 101 mmol/L (96-108); Creatinine, Serum 0.72 mg/dL (0.70-1.20); EST Glomerular Filtration Rate 117 (>60); Globulin 3.6 g/dL (2.2-4.2); Glucose 106 mg/dL (70-99); Potassium 3.9 mmol/L (3.3-5.1); Protein, Total 7.9 g/dL (5.9-8.4); Sodium Level 137 mmol/L (133-145); Total Bilirubin 0.48 mg/dL (0.00-1.30)
[2024-05-10 22:43] LABS: Bacteria 0 SEEN /hpf (None Seen); Mucous, Urine 0 SEEN /hpf (<or=2+)
[2024-05-10 22:45] LABS: Color, Urine Yellow (Yellow); Glucose, Dipstick Normal (Normal); Ketone-Dipstick Negative (Negative); Leukocyte Esterase-Dipstick 25 /ul (Negative); Nitrite-Dipstick Negative (Negative); Occult Blood-Urine Negative /ul (Negative); Protein-Dipstick 15 mg/dl (Negative); Specific Gravity, Urine 1.015 (1.002-1.030); Urine Bilirubin Dipstick Negative (Negative); Urine Clarity Clear (Clear); Urine Urobilinogen Normal (Normal)
[2024-05-10 22:52] LABS: Red Blood Cells-Urine 0 SEEN /hpf (0-5); Squamous Epithelial Cells - UA 0-5 SEEN /hpf (5-10); White Blood Cells 0-5 SEEN /hpf (0-5)
[2024-05-10 23:13] VITALS: BP 149/93; PULSE 84; RESP 16; TEMP 36.9; O2SAT 99
== END 2024-05-10 23:13 | disposition home or self-care (01) ==
PROVIDERS: Emergency Provider Emergency Medicine; PCP Physician Assistant; Visit Provider Emergency Medicine
DX: O99.893 Other specified diseases and conditions complicating puerperium (principal); R10.9 Unspecified abdominal pain; R11.0 Nausea; Z79.899 Other long term (current) drug therapy
CPT/HCPCS: 74177; 80053; 81001; 83605; 83690; 84703; 85025; 96361; 96374; 96375; 99285; Q9967; A4216; J2405